=== PATIENT | female | born 1940 | race Caucasian/White ===

== ENCOUNTER 2019-01-23 23:18 | Observation (INO) ==
[2019-01-24] MEDS ORDERED: ACETAMINOPHEN 325 MG TABLET PO PRN (02:23)
[2019-01-24] MEDS ORDERED: diphenhydrAMINE CAP 25 MG CAPSULE PO PRN (02:23)
[2019-01-24] MEDS ORDERED: ONDANSETRON 4 MG/2 ML VIAL IV PRN (02:23)
[2019-01-24] MEDS ORDERED: NICOTINE 21 MG/24 HR PATCH TRANSDERM PRN (02:23)
[2019-01-24] MEDS ORDERED: BISACODYL 5 MG TABLET PO PRN (02:23)
[2019-01-24] MEDS ORDERED: MORPHINE 4 MG/1 ML VIAL IV PRN (02:23)
[2019-01-24 05:21] LABS: Basophils % 0.2 % (0.0-0.8); Hematocrit 39.2 VOL% (35.7-47.0); Hemoglobin 12.8 GM/DL (12.0-16.0); Immature Granulocytes % 0.6 %; Immature Granulocytes Absolute 0.06 #; Lymphocytes # 0.5 10*3/uL (1.4-4.0); Lymphocytes % 4.7 % (21.3-54.2); Mean Corpuscular HGB Conc 32.7 GM/DL (32-36); Mean Corpuscular Volume 93.6 FL (87-102); Mean Platelet Volume 9.7 FL (9.6-12.0); Monocytes % 5.8 % (1.7-12.7); Neutrophils % 88.7 % (38.7-73.9); Platelet Count 184 T/CUMM (130-400); Red Blood Count 4.19 MC/CUMM (3.8-5.5); Red Cell Distribution Width 12.6 % (9.3-17.3)
[2019-01-24 05:47] LABS: Hypochromasia 1+; Lymphocytes 4 % (20-55); Metamyelocytes 1 %; Microcytosis 1+; Platelet Estimate Adequate; Polychromasia Few; Segmented Neutrophils 93 % (50-85); Total Cells Counted 100
[2019-01-24 05:48] LABS: Albumin 3.6 G/DL (3.4-5.0); Bilirubin,Total 0.6 MG/DL (0.2-1.0); Calcium 8.2 MG/DL (8.5-10.1); Osmolality,Calculated 276.8 MOS/KG (273-304); Total Protein 6.5 G/DL (6.4-8.3)
[2019-01-24] MEDS: AZITHROMYCIN INJ 500 MG in SODIUM CHLORIDE 0.9% 250 ML IV SCH (07:35)
[2019-01-24] MEDS ORDERED: CETIRIZINE 10 MG TABLET PO PRN (11:59)
[2019-01-24] MEDS: PYRIDOXINE 50 MG TABLET PO SCH (13:46)
[2019-01-24] MEDS: AZITHROMYCIN 250 MG TABLET PO SCH (13:46)
[2019-01-24] MEDS: ALBUTEROL/IPRATROPIUM 3 ML NEB RESP TX SCH (20:07)
[2019-01-24] MEDS ORDERED: RIFAMPIN 150 MG PO SCH (21:00)
[2019-01-24] MEDS ORDERED: RIFAMPIN 300 MG CAPSULE PO SCH (21:00)
[2019-01-25] MEDS: ALBUTEROL/IPRATROPIUM 3 ML NEB RESP TX SCH ×2 (01:23→07:38)
[2019-01-25] MEDS: AZITHROMYCIN INJ 500 MG in SODIUM CHLORIDE 0.9% 250 ML IV SCH (06:48)
[2019-01-25] MEDS ORDERED: ETHAMBUTOL 400 MG TABLET PO SCH (07:30)
[2019-01-25] MEDS ORDERED: MULTIVITAMIN (CENTRUM) TABLET PO SCH (09:00)
[2019-01-25] MEDS ORDERED: ASPIRIN EC 81 MG TABLET PO SCH (09:00)
[2019-01-25] MEDS: PYRIDOXINE 50 MG TABLET PO SCH (13:07)
[2019-01-25] MEDS: AZITHROMYCIN 250 MG TABLET PO SCH (13:07)
[2019-01-25 13:44] VITALS: BP 113/61
== END 2019-01-25 13:32 | disposition home health service (06) ==
LOC: N.3E → SUATTDRO 01-24 01:05 → N.5E 01-24 14:05
PROVIDERS: ADMIT Internal Medicine; ATTEND Family Medicine